=== PATIENT | female | born 1975 | race Caucasian/White ===

== ENCOUNTER 2017-01-12 16:47 | Emergency (ER) | payer OTHER ==
[~2017-01-12] VITALS: Ht 172.7 cm; Wt 79.4 kg
[~2017-01-12 16:47] MED LIST: AMLO5TAB92 PO; CITA10TA71 PO
[2017-01-12 16:54] VITALS: BP 158/80; PULSE 98; RESP 20; TEMP 97.6; O2SAT 100
--- NOTE | 2017-01-12 17:00 | NUR ---
MSE done in triage per KIMO Hernandez.
--- NOTE | 2017-01-12 17:01 | NUR ---
Pt placed to ER waiting room in stable condition.
--- NOTE | 2017-01-12 17:10 | NUR ---
Instructed pt that we are mandated reporters to the DMV for reoccurent syncopal episodes. Pt provides information and DMV reporting form completed.
--- NOTE | 2017-01-12 17:34 | NUR ---
AMBULATED TO BED 6
--- NOTE | 2017-01-12 17:35 | NUR ---
dr. reeves at bedside examining the pt.
--- NOTE | 2017-01-12 17:40 | NUR ---
pt. to ER for headache r/t head injury on friday at a game in [place]. states that she had a syncope episode about a year ago, has been doing okay but past 2 days felt dizzy s/p, denies vomiting, mild headache 02/17
--- NOTE | 2017-01-12 18:15 | NUR ---
pt. out to head CT ambulatory with nikunj
--- NOTE | 2017-01-12 18:20 | NUR ---
pt. back from CT ambulatory
[2017-01-12] MEDS ORDERED: KETOROLAC TROMETHAMINE 60 MG/2 ML VIAL IM ONE (18:45)
[2017-01-12 19:43] VITALS: BP 138/83; PULSE 92; RESP 17; TEMP 97.6; O2SAT 100
--- NOTE | 2017-01-12 19:43 | NUR ---
Patient given written and verbal discharge instructions and verbalizes understanding. ER MD discussed with patient the results and treatment provided. Patient in stable condition. ID arm band removed. No Rx given. Patient educated on pain management and to follow up with PMD. Pain Scale 2/10. Opportunity for questions provided and answered.
== END 2017-01-12 19:43 | disposition home or self-care (01) ==
LOC: SED 16:47
DX: S16.1XXA Strain of muscle, fascia and tendon at neck level, initial encounter (principal); S09.90XA Unspecified injury of head, initial encounter; R55 Syncope and collapse; I10 Essential (primary) hypertension; W19.XXXA Unspecified fall, initial encounter; Y93.89 Activity, other specified; Y99.8 Other external cause status; Y92.89 Other specified places as the place of occurrence of the external cause
CPT/HCPCS: 70450; 72125; 81025; 93005; 96372; 99284; J1885

== ENCOUNTER 2017-08-13 08:13 | Day surgery (SDC) | payer OTHER ==
[~2017-08-13] VITALS: Ht 172.7 cm; Wt 81.2 kg
[2017-08-13 08:40] VITALS: O2SAT 100
[2017-08-13] MEDS ORDERED: NS IRRIG SOLN 5000 ML IR ONE (09:35)
[2017-08-13] MEDS ORDERED: MIDAZOLAM HCL 5 MG/5 ML VIAL IVP ONE (09:35)
[2017-08-13] MEDS ORDERED: ONDANSETRON HCL 4 MG/2 ML VIAL IVP ONE (09:35)
[2017-08-13] MEDS ORDERED: LR 1,000 ML IV.SOLN IV ONE (09:35)
[2017-08-13] MEDS ORDERED: LR 1,000 ML IV SCH (10:14)
[2017-08-13] MEDS ORDERED: MORPHINE 4 MG/ML INJ. SYRINGE IVP PRN ×3 (10:15)
[2017-08-13] MEDS ORDERED: OXYCODONE/ACETAMINOPHEN 5-325 TABLET PO PRN (10:30)
[2017-08-13] MEDS ORDERED: PROMETHAZINE HCL 25 MG/ML AMP IM PRN (10:30)
[2017-08-13] MEDS ORDERED: ONDANSETRON HCL 4 MG/2 ML VIAL IVP PRN (10:30)
[2017-08-13] MEDS ORDERED: HYDROmorphone 2 MG TAB PO PRN (10:30)
[2017-08-13 11:29] VITALS: BP 124/70; PULSE 82; RESP 16
[2017-08-13] MEDS ORDERED: OXYCODONE/ACETAMINOPHEN 5-325 TABLET ONE (12:38)
== END 2017-08-13 15:47 | disposition home or self-care (01) ==
LOC: SDS 08:13 → SMU 08:14 → SDS 15:47
PROVIDERS: ATTEND Obstetrics & Gynecology
DX: N84.0 Polyp of corpus uteri (principal); D64.9 Anemia, unspecified; I10 Essential (primary) hypertension; F41.8 Other specified anxiety disorders; G40.209 Localization-related (focal) (partial) symptomatic epilepsy and epileptic syndromes with complex partial seizures, not intractable, without status epilepticus; G43.909 Migraine, unspecified, not intractable, without status migrainosus; M19.90 Unspecified osteoarthritis, unspecified site; K21.9 Gastro-esophageal reflux disease without esophagitis; J45.909 Unspecified asthma, uncomplicated
CPT/HCPCS: 36415; 58563; 86886; 86900; 86901; 88305; C1819; J2250; J2405; J7120

== ENCOUNTER 2019-09-21 00:52 | Emergency (ER) | payer OTHER ==
[~2019-09-21] VITALS: Ht 172.7 cm; Wt 81.6 kg
[2019-09-21 00:52] VITALS: BP_SYST 149
[~2019-09-21 00:52] MED LIST changes: +CITA10TA17 PO; -CITA10TA71 PO
[2019-09-21 01:43] LABS: CALCIUM 9.1 mg/dL (8.4-11.0); CREATININE 0.92 mg/dL (0.55-1.30); POTASSIUM 3.5 mmol/L (3.5-5.1)
[2019-09-21 01:44] LABS: HEMOGLOBIN 15.3 g/dL (12.0-16.0); MEAN CORPUSCULAR HEMOGLOBIN 29 pg (27-31); MEAN CORPUSCULAR HGB CONC 34 % (32-36); MEAN CORPUSCULAR VOLUME 86 fL (79.0-98.0); PLATELET COUNT (AUTO) 371 K/uL (130-430); RED BLOOD CELL COUNT(AUTO) 5.22 MIL/uL (4.2-6.2); RED CELL DISTRIBUTION WIDTH 14.4 % (9.0-15.0); WHITE BLOOD COUNT (AUTO) 24.6 K/uL (4.8-10.8)
[2019-09-21 01:55] LABS: ALBUMIN 4.4 g/dL (3.4-4.8)
[2019-09-21] MEDS ORDERED: ONDANSETRON HCL 4 MG/2 ML VIAL IVP ONE ×2 (02:00→02:30)
[2019-09-21] MEDS ORDERED: NACL 0.9% 1,000 ML IV ONE ×3 (02:00→06:30)
[2019-09-21 02:09] LABS: BAND % (MANUAL) 3 % (0-6); BASOPHILS % (MANUAL) 0 % (0-2); EOSINOPHILS % (MANUAL) 0 % (0-7); LYMPHOCYTES % (MANUAL) 3 % (20-46); MONOCYTES % (MANUAL) 5 % (0-11)
[2019-09-21] MEDS ORDERED: cefTRIAXone 1 GM IVPB PREMIX 50 ML IV ONE (03:45)
[2019-09-21] MEDS ORDERED: DIPHENOXYLATE HCL/ATROP SULF 2.5 MG TAB PO ONE (04:30)
[2019-09-21] MEDS ORDERED: PROMETHAZINE INJ.Non-Formulary 25 MG/ML AMP IVP ONE (04:30)
[2019-09-21] MEDS ORDERED: METOCLOPRAMIDE HCL 10 MG/2 ML VIAL IVP ONE (04:45)
[2019-09-21] MEDS ORDERED: MORPHINE 4 MG/ML INJ. SYRINGE IVP ONE (05:15)
[2019-09-21 05:59] LABS: BILIRUBIN,URINE NEGATIVE (NEGATIVE); BLOOD, URINE NEGATIVE (NEGATIVE); CLARITY/URINE CLEAR (CLEAR); COLOR,URINE YELLOW (YELLOW); GLUCOSE,URINE NEGATIVE (NEGATIVE); KETONES,URINE TRACE (NEGATIVE); LEUKOCYTE ESTERASE ,URINE TRACE (NEGATIVE); NITRITE, URINE NEGATIVE (NEGATIVE); PROTEIN URINE NEGATIVE (NEGATIVE); UROBILINOGEN,URINE 0.2 (0.2-1.0)
[2019-09-21 06:22] LABS: BACTERIA,URINE MODERATE /HPF (None Seen); RBC,URINE 0-3 /HPF (0-3)
[2019-09-21] MEDS ORDERED: ACETAMINOPHEN 325 MG TABLET PO ONE (06:30)
[2019-09-21 07:58] VITALS: BP_SYST 134
== END 2019-09-21 07:59 | disposition home or self-care (01) ==
LOC: SED 00:52
DX: K52.9 Noninfective gastroenteritis and colitis, unspecified (principal); E86.0 Dehydration; N39.0 Urinary tract infection, site not specified; I10 Essential (primary) hypertension; J45.909 Unspecified asthma, uncomplicated
CPT/HCPCS: 36415; 71045; 80053; 81000; 82150; 83605; 83690; 84702; 85007; 85027; 87040; 87086; 93005; 96361; 96365; 96375; 99284; J0696; J2270; J2405; J2765; J7030; J2550

== ENCOUNTER 2019-12-14 21:12 | Emergency (ER) | payer OTHER ==
[~2019-12-14] VITALS: Ht 172.7 cm; Wt 84.8 kg
[2019-12-14 21:26] VITALS: BP_SYST 163
--- NOTE | 2019-12-14 21:30 | NUR ---
Patient triaged and placed in waiting room. VSS and patient appears in no acute distress at this time. Accompanied by self, awaiting available bed, and MD notified of need for MSE.
--- NOTE | 2019-12-14 22:14 | NUR ---
PLACED IN BED 2. HERE FOR SWELLING TO LEFT SIDE OF CHEEK ANTERIOR TO THE LEFT EAR AFTER EATING CERTAIN FOOD. DENIES SOB.
--- NOTE | 2019-12-14 22:24 | NUR ---
ER-MD CAME BY BEDSIDE TO EVALUATE PT.
[2019-12-14] MEDS ORDERED: NACL 0.9% 1,000 ML IV ONE (22:28)
[2019-12-14] MEDS ORDERED: FAMOTIDINE PF 20 MG/2 ML VIAL IVP ONE (22:30)
[2019-12-14] MEDS ORDERED: IPRATROPIUM BROM 0.5 MG/2.5 ML VIAL.NEB (ATROVENT) INH ONE (22:30)
[2019-12-14] MEDS ORDERED: ALBUTEROL SULFATE 0.083% 2.5 MG/3 ML VIAL.NEB INH ONE (22:30)
[2019-12-14] MEDS ORDERED: methylPREDNISolone SOD SUCC/PF 62.5 MG/ML VIAL IVP ONE (22:30)
--- NOTE | 2019-12-14 22:52 | NUR ---
BREATHING TREATMENT GIVEN BY RT. GAUGE 18 IV LINE ESTABLISHED TO THE RIGHT AC. BLOOD ALSO DRAWN AND SENT TO THE LAB. SOLUMEDROL 125 MG IVP AND PEPCID 40 MG IVP GIVEN ORDERED.
--- NOTE | 2019-12-14 22:57 | NUR ---
NS 1 LITERAT 100 ML/HR GIVEN.
[2019-12-14 23:04] LABS: BASOPHILS # (AUTO) 0.1 K/uL (0.0-0.2); BASOPHILS % (AUTO) 0.8 % (0.0-2.0); EOSINOPHILS # (AUTO) 0.1 K/uL (0.0-0.4); EOSINOPHILS % (AUTO) 1.2 % (0.0-4.0); HEMATOCRIT 42.8 % (36-48); HEMOGLOBIN 14.1 g/dL (12.0-16.0); LYMPHOCYTES # (AUTO) 2.5 K/uL (1.0-5.5); LYMPHOCYTES % (AUTO) 21.4 % (20.5-51.5); MEAN CORPUSCULAR HEMOGLOBIN 29 pg (27-31); MEAN CORPUSCULAR HGB CONC 33 % (32-36); MEAN CORPUSCULAR VOLUME 87 fL (79.0-98.0); MONOCYTES # (AUTO) 0.7 K/uL (0.0-1.0); MONOCYTES % (AUTO) 6.3 % (1.7-9.3); NEUTROPHILS # (AUTO) 8.3 K/uL (1.8-7.7); NEUTROPHILS % (AUTO) 70.3 % (40.0-70.0); PLATELET COUNT (AUTO) 378 K/uL (130-430); RED BLOOD CELL COUNT(AUTO) 4.92 MIL/uL (4.2-6.2); RED CELL DISTRIBUTION WIDTH 14.3 % (9.0-15.0); WHITE BLOOD COUNT (AUTO) 11.8 K/uL (4.8-10.8)
[2019-12-14 23:15] LABS: CALCIUM 8.8 mg/dL (8.4-11.0); CREATININE 0.6 mg/dL (0.55-1.30); POTASSIUM 3.6 mmol/L (3.5-5.1)
[2019-12-14] MEDS ORDERED: ACETAMINOPHEN 500 MG TABLET PO ONE (23:15)
[2019-12-14 23:20] LABS: TOTAL BILIRUBIN 0.3 mg/dL (0.0-1.0)
--- NOTE | 2019-12-14 23:30 | NUR ---
TYLENOL PO ORDERED BUT PT.REFUSED.
--- NOTE | 2019-12-14 23:40 | NUR ---
DISCHARGED STABLE AND IMPROVED. CHEEK SWELLING RESOLVED. DISCHARGED STABLE. PRESCRIPTION,VERBAL AND WRITTEN AFTERCARE INSTRUCTIONS GIVEN. VERBALIZED UNDERSTANDING.
[2019-12-14 23:44] VITALS: BP_SYST 127
== END 2019-12-14 23:44 | disposition home or self-care (01) ==
LOC: SED 21:12
DX: T78.40XA Allergy, unspecified, initial encounter (principal); K11.20 Sialoadenitis, unspecified; I10 Essential (primary) hypertension; J45.909 Unspecified asthma, uncomplicated; Z79.899 Other long term (current) drug therapy; X58.XXXA Exposure to other specified factors, initial encounter
CPT/HCPCS: 36415; 80053; 82150; 83605; 83690; 85025; 87040; 94640; 96374; 96375; 99283; J2930; J3490; J7030; J7613